=== PATIENT | female | born 1955 | race Caucasian/White ===

== ENCOUNTER → 2016-06-23 | Outpatient (CLI) | payer MEDICARE, OTHER, BC ==
[~2016-06-23] MED LIST: ACET325S PO; ASPI81TA2 PO; CRESTOR20 MG PO; GABA-586 PO; LOSA1TAB7 PO; MONT4GRA PO; NORT10CA PO; PANT20TA3 PO; RIZA10TA10 PO
--- NOTE | 2016-06-23 17:14 | KCIC ---
PROCEDURE Three-view right ankle and 3 view right foot dated 06/23/2016. HISTORY Pain after injury 3 weeks ago. TECHNIQUE Three views right ankle and 3 views right foot. COMPARISON None. FINDINGS Bony alignment is anatomic. No displaced fracture. Mild diffuse soft tissue swelling. The tailor dome is intact. Images of the foot show normal bony alignment. No displaced fracture. No acute osseous or articular abnormality. IMPRESSION - No acute osseous abnormality right foot or ankle. - Generalized soft tissue swelling. Electronically signed by: Erik Hernandez (Jun 23, 2016 17:13:22)
== END | disposition home or self-care (01) ==
LOC: KCIC 15:45
PROVIDERS: ATTEND Internal Medicine
DX: M25.571 Pain in right ankle and joints of right foot (principal); M79.89 Other specified soft tissue disorders
CPT/HCPCS: 73610; 73630

== ENCOUNTER → 2017-03-24 | Outpatient (CLI) | payer MEDICARE, OTHER, BC | END | disposition home or self-care (01) | LOC: KCIC DEXA 13:16 | DX: Z13.820 Encounter for screening for osteoporosis (principal); Z78.0 Asymptomatic menopausal state | CPT/HCPCS: 77080 ==

== ENCOUNTER → 2017-06-02 | Outpatient (CLI) | payer MEDICARE, OTHER, BC | END | disposition home or self-care (01) | LOC: KCIC CT 14:17 | DX: J32.4 Chronic pansinusitis (principal); J34.2 Deviated nasal septum | CPT/HCPCS: 70486 ==